=== PATIENT | female | born 1955 | race Caucasian/White ===

== ENCOUNTER 2017-07-15 09:23 | Emergency (ER) | END 2017-07-15 11:54 | disposition home or self-care (01) ==

== ENCOUNTER → 2024-04-13 | Outpatient (CLI) | payer MEDICARE ==
[~2024-04-13] MED LIST: PROG100 PO
== END | disposition home or self-care (01) ==
LOC: LAB SHORT 10:51 → LAB 10:51
DX: N39.0 Urinary tract infection, site not specified (principal)
CPT/HCPCS: 87086